=== PATIENT | female | born 1940 | race Caucasian/White ===

== ENCOUNTER 2021-02-03 00:19 | Inpatient (IN) | payer MEDICARE, SELFPAY ==
[2021-02-03] VITALS (50 sets, daily range): BP systolic 95–137; BP diastolic 41–79; PULSE 46–89; RESP 14–28; TEMP 36.4–36.8; O2SAT 90–98; BMI 26.5; BMI 20.5
--- NOTE | 2021-02-03 00:16 | XR_ITS ---
PROCEDURE INFORMATION: Exam: XR Chest Exam date and time: 02/03/2021 12:16 AM Age: 80 years old Clinical indication: Shortness of breath; Patient HX: PT had thora this morning at [facility]; Additional info: SOA TECHNIQUE: Imaging protocol: XR of the chest. Views: 1 view. COMPARISON: No relevant prior studies available. FINDINGS: Lungs: Complete consolidation/collapse of the right lung, with central air bronchograms. Left lung demonstrates coarse interstitial opacities suggesting chronic emphysema. There may be superimposed edema or atypical infection as well. Pleural spaces: Complete opacification of the right hemithorax likely due to a large layering right pleural effusion. No pneumothorax. No left pleural effusion. Heart/Mediastinum: Cardiac silhouette partially obscured, probably mildly enlarged. Aortic atherosclerosis. Implantable loop recorder. Bones/joints: Osteopenia. Remote-appearing fracture deformity of the left proximal humerus. Scattered degenerative changes. IMPRESSION: 1. Complete opacification of the right hemithorax likely representing large layering pleural effusion and complete consolidation/collapse of the right lung. 2. Emphysema. Possible mild edema or atypical infection in the left lung.
--- NOTE | 2021-02-03 00:30 | ECG_ITS ---
APPROVED REPORT Exam: Resting ECG HR:54 bpm ECG Measurements Heart Rate 54 AXES QRSd 104 QRS 68 QT 424 T 65 QTc 402 Conclusion Junctional rhythm Incomplete right bundle branch block ST abnormality, possible digitalis effect Abnormal ECG Electronically signed by : Tom Ricardo MD 02/05/2021 11:40:31
[2021-02-03 00:40] LABS: Coronavirus 19, PCR Not Detected (NotDetected); Influenza A, PCR Not Detected (NotDetected); Influenza B, PCR Not Detected (NotDetected)
[2021-02-03 00:40] LABS: Basophils % 0.5 % (0.1-2.0); Eosinophils % 0.5 % (0.1-12.0); Hematocrit 25.5 % (37.0-47.0); Lymphocytes % 12.1 % (10-50); Mean Corpuscular HGB Conc 31.4 g/dL (31.8-35.4); Mean Corpuscular Hemoglobin 28.1 pg (27.0-31.2); Mean Corpuscular Volume 89.5 fl (81-99); Mean Platelet Volume 8.5 fl (7.4-10.4); Monocytes # 0.6 K/mm3 (0.1-1.0); Monocytes % 7.3 % (1.7-9.3); Neutrophils # 6.4 K/mm3 (1.8-7.8); Neutrophils % 79.5 % (37.0-80.0); Platelet Count 370 K/mm3 (142-424); Red Blood Count 2.85 M/mm3 (4.20-5.40); Red Cell Distribution Width 15.6 % (11.5-17.5)
[2021-02-03 00:44] LABS: ABG Base Excess 2.5 mmol/L (-2.4-2.3); ABG HCO3 27.6 mmhg (22.0-26.0); ABG Oxygen Saturation 93 % (90-100); ABG PCO2 47.5 mmhg (35.0-45.0); ABG PH 7.38 mmol/L (7.35-7.45); ABG PO2 67.2 mmhg (80-100); ABG TCO2 29.1 mmhg (23-27); Allen's Test Y; Oxygen 100 %; Source R/R
[2021-02-03 00:49] LABS: Ammonia < 9 umol/L (9-30)
[2021-02-03 00:50] LABS: Alanine Aminotransferase 16 U/L (12-78); Albumin Level 3.2 g/dl (3.5-5.0); Alkaline Phosphatase 103 U/L (38-126); Anion Gap 11.9 mEq/L (5-15); Aspartate Amino Transferase 27 U/L (14-36); Bilirubin,Total 0.5 mg/dl (0.2-1.3); Blood Urea Nitrogen 30 mg/dl (7-17); Calcium 8.4 mg/dl (8.4-10.2); Carbon Dioxide 29 mmol/L (22.0-30.0); Chloride 101 mmol/L (98-107); Creatinine Clearance Estimated 30 mL/min (50-200); Estimated Glomerular Filt Rate 31 ml/min (>60); GFR (African American) 38 ML/MIN (>60); Globulin 3.3 g/dL (1.3-3.2); Glucose 197 mg/dl (74-100); Lactic Acid 1.2 mmol/L (0.7-2.1); Potassium 4.9 mmoL/L (3.5-5.1); Sodium 137 mmol/L (136-145); Total Protein,Serum 6.5 g/dl (6.3-8.2)
--- NOTE | 2021-02-03 00:52 | HMH.EDSOB ---
ED Disposition Clinical Impression: Pleural effusion Respiratory failure with hypoxia Qualifiers: Chronicity: acute Qualified Code(s): J96.01 - Acute respiratory failure with hypoxia Disposition: Admitted As Inpatient Condition on Discharge: Serious - Critical Care Critical Care Time: No Attestation: On , the high probability of a clinically significant, sudden or life threatening deterioration of the following system(s) required my full and direct attention, intervention and personal management. The time I documented below is in addition to time spent performing reported procedures but includes the following listed in this critical care notation. Medical Decision Making - Medical Records Medical records reviewed: Yes: I reviewed the patient's medical records. - [place] Inquiry Pt receiving controlled substance: No Vital Signs: 02/03/21 00:09 02/03/21 00:15 02/03/21 00:30 Temperature 97.8 F Temperature Source Rectal Pulse Rate 53 L 53 L Pulse Rate [Right Brachial] 54 L Respiratory Rate 28 H 22 20 Blood Pressure 100/54 L 95/52 L Blood Pressure [Right Arm] 126/52 L Blood Pressure Mean Blood Pressure Mean [Right Arm] 76 Blood Pressure Source [Right Arm] Automatic Cuff Blood Pressure Position [Right Arm] Sitting 02 Sat by Pulse Oximetry 96 94 L 95 Oxygen Delivery Method Non-Rebreather Oxygen Flow Rate (LPM) 10 02/03/21 00:45 02/03/21 01:01 02/03/21 01:33 Temperature Temperature Source Pulse Rate 52 L 52 L 54 L Pulse Rate [Right Brachial] Respiratory Rate 15 14 Blood Pressure 99/41 L 114/49 L 125/49 L Blood Pressure [Right Arm] Blood Pressure Mean Blood Pressure Mean [Right Arm] Blood Pressure Source [Right Arm] Blood Pressure Position [Right Arm] 02 Sat by Pulse Oximetry 98 97 90 L Oxygen Delivery Method Oxygen Flow Rate (LPM) 02/03/21 02:01 02/03/21 02:19 02/03/21 02:31 Temperature Temperature Source Pulse Rate 55 L 46 L 53 L Pulse Rate [Right Brachial] Respiratory Rate Blood Pressure 126/49 L 137/57 L 132/57 L Blood Pressure [Right Arm] Blood Pressure Mean 83 82 Blood Pressure Mean [Right Arm] Blood Pressure Source [Right Arm] Blood Pressure Position [Right Arm] 02 Sat by Pulse Oximetry 94 L 94 L 95 Oxygen Delivery Method Non-Rebreather Non-Rebreather Oxygen Flow Rate (LPM) 02/03/21 03:06 Temperature Temperature Source Pulse Rate 53 L Pulse Rate [Right Brachial] Respiratory Rate Blood Pressure 113/51 L Blood Pressure [Right Arm] Blood Pressure Mean Blood Pressure Mean [Right Arm] Blood Pressure Source [Right Arm] Blood Pressure Position [Right Arm] 02 Sat by Pulse Oximetry 95 Oxygen Delivery Method Oxygen Flow Rate (LPM) - Lab Data Lab results reviewed: Yes: I reviewed the patient's lab results. Lab Results 02/03/21 00:30: WBC 8.0, RBC 2.85 L, Hgb 8.0 L, Hct 25.5 L, MCV 89.5, MCH 28.1, MCHC 31.4 L, RDW 15.6, Plt Count 370, MPV 8.5, Neut % (Auto) 79.5, Lymph % (Auto) 12.1, [place] % (Auto) 7.3, Eos % (Auto) 0.5, Baso % (Auto) 0.5, Neut # (Auto) 6.4, Lymph # (Auto) 1.0, [place] # (Auto) 0.6, Eos # (Auto) 0.0, Baso # (Auto) 0.0 02/03/21 00:31: Sodium 137, Potassium 4.9, Chloride 101, Carbon Dioxide 29, Anion Gap 11.9, BUN 30 H, Creatinine 1.60 H, Estimated Creat Clear 30, Estimated GFR 31 L, Est GFR ( Amer) 38 L, Glucose 197 H, Calcium 8.4, Total Bilirubin 0.5, AST 27, ALT 16, Alkaline Phosphatase 103, Total Protein 6.5, Albumin 3.2 L, Globulin 3.3 H, Albumin/Globulin Ratio 1.0 L, Procalcitonin 0.112 02/03/21 00:31: Lactate 1.2 02/03/21 00:31: Ammonia < 9 L 02/03/21 00:31: Troponin I < 0.01, NT-Pro-B Natriuret Pep 7710 H, TSH 3.10 02/03/21 00:35: SARS-CoV-2 (PCR) Not detected, Influenza A Untype (PCR) Not detected, Influenza Type B (PCR) Not detected 02/03/21 00:43: Specimen Source R/r, O2 % 100, ABG pH 7.38, ABG pCO2 47.5 H, ABG pO2 67.2 L, ABG HCO3 27.6 H, ABG Total CO2 29.1 H, ABG O2 Sa
--- NOTE | 2021-02-03 01:01 | PC.NURSE ---
received critical notification of h/h. md sheppard aware.
[2021-02-03 01:03] LABS: NT Pro Brain Natriuretic Pep. 7710 pg/mL (0-450)
[2021-02-03 01:05] LABS: Troponin I < 0.01 ng/ml (0.00-0.034)
[2021-02-03 01:09] LABS: Procalcitonin 0.112 ng/mL (0.0-2.0)
--- NOTE | 2021-02-03 01:13 | CT_ITS ---
PROCEDURE INFORMATION: Exam: CT Chest Without Contrast; Diagnostic Exam date and time: 02/03/2021 1:13 AM Age: 80 years old Clinical indication: Shortness of breath; Patient HX: cedric GOULD earlier today; Additional info: Shortness of air TECHNIQUE: Imaging protocol: Diagnostic computed tomography of the chest without contrast. Radiation optimization: All CT scans at this facility use at least one of these dose optimization techniques: automated exposure control; mA and/or kV adjustment per patient size (includes targeted exams where dose is matched to clinical indication); or iterative reconstruction. COMPARISON: CR XR CHEST PORTABLE 02/03/2021 12:23 AM FINDINGS: Thyroid: Nodularity of the right thyroid lobe suggested. Left thyroid lobe is not visualized, may be surgically removed. Lungs: Complete consolidation/collapse of the right lung. The right lung is heterogeneous in appearance/attenuation, with notable decreased attenuation involving right upper lobe, suspicious for pneumonia. Scattered secretions/mucus plugging within the right bronchitis/bronchials, most significantly involving the right lower lobe. Mild dependent atelectasis at the left lung base. Pleural spaces: Large right pleural effusion occupying the entire right hemithorax. This measures simple fluid attenuation. No pneumothorax. No left pleural effusion. Heart: Cardiomegaly. No significant pericardial effusion. Coronary calcifications and stents. Mediastinal space: Small hiatal hernia. Aorta: Scattered atherosclerotic calcifications. No thoracic aortic aneurysm. Lymph nodes: Scattered prevascular lymph nodes measuring up to 0.6 cm in short axis, nonspecific, likely reactive. No frankly enlarged lymph nodes are seen within the thorax. Liver: Incompletely imaged. Heterogeneous attenuation is seen near the liver dome, with possible capsular retraction, not fully assessed. Intraperitoneal space: Partially visualized small volume ascites Bones/joints: Old posterior left 11th rib fracture. Osteopenia. Scattered degenerative changes including multilevel spondylosis. Soft tissues: Implantable loop recorder in the anterior chest wall. Other findings: There is low-attenuation in blood pool compatible with anemia. IMPRESSION: 1. Large right pleural effusion occupying the entire right hemithorax. Complete collapse of the right lung, which is heterogeneous in attenuation, possibly due to superimposed pneumonia. 2. Mild dependent atelectasis at the left lung base. 3. Cardiomegaly. Anemia. Partially visualized ascites. 4. The liver appears heterogeneous in attenuation, which is not fully evaluated. Infiltrative liver mass cannot be excluded. Recommend dedicated liver imaging for further evaluation.
--- NOTE | 2021-02-03 01:14 | PC.NURSE ---
notified rad of ct scan
--- NOTE | 2021-02-03 01:35 | PC.NURSE ---
RT at bedside
--- NOTE | 2021-02-03 02:16 | PC.NURSE ---
to whitney, nurse with patient.
[2021-02-03 04:01] LABS: Troponin I < 0.01 ng/ml (0.00-0.034)
[2021-02-03 06:44] LABS: Chloride 104 mmol/L (98-107); Potassium 4.6 mmoL/L (3.5-5.1); Sodium 137 mmol/L (136-145)
[2021-02-03 06:47] LABS: Anion Gap 8.6 mEq/L (5-15); Blood Urea Nitrogen 32 mg/dl (7-17); Calcium 8.2 mg/dl (8.4-10.2); Carbon Dioxide 29 mmol/L (22.0-30.0); Creatinine Clearance Estimated 27 mL/min (50-200); Estimated Glomerular Filt Rate 33 ml/min (>60); GFR (African American) 41 ML/MIN (>60); Glucose 122 mg/dl (74-100)
[2021-02-03 06:49] LABS: Eosinophils # 0.1 K/mm3 (0.0-0.4); Lymphocytes # 1.3 K/mm3 (0.7-4.5); Mean Corpuscular Volume 90.9 fl (81-99); Monocytes # 0.6 K/mm3 (0.1-1.0)
[2021-02-03 06:53] LABS: Basophils % 0.5 % (0.1-2.0); Eosinophils % 1.2 % (0.1-12.0); Lymphocytes % 18.8 % (10-50); Mean Corpuscular Hemoglobin 28.2 pg (27.0-31.2); Mean Platelet Volume 8.2 fl (7.4-10.4); Monocytes % 8.9 % (1.7-9.3); Neutrophils # 4.8 K/mm3 (1.8-7.8); Neutrophils % 70.7 % (37.0-80.0); Platelet Count 305 K/mm3 (142-424); Red Blood Count 2.53 M/mm3 (4.20-5.40); Red Cell Distribution Width 15.7 % (11.5-17.5); White Blood Count 6.8 K/mm3 (4.8-10.8)
[2021-02-03 06:54] LABS: Hemoglobin 7.1 g/dL (12.2-16.2)
--- NOTE | 2021-02-03 06:56 | PC.NURSE ---
Recieved call from Martha in lab, critical lab value Hgb: 7.1, Hct: 23, report to
[2021-02-03 07:04] LABS: Troponin I < 0.01 ng/ml (0.00-0.034)
--- NOTE | 2021-02-03 07:16 | US_ITS ---
PROCEDURE: US LIVER CLINICAL INDICATION: Liver mass on CT? COMPARISON: CT CT CHEST WO CON from 02/03/2021 FINDINGS: PANCREAS: Pancreatic tail is not well delineated. The pancreatic head has an unremarkable appearance. Previous CT scan shows at least 2 hypodensities and possibly 3 of the pancreatic tail measuring approximately 10 mm each. This may be better evaluated with MRI without and with contrast if the patient can breath hold. If the patient cannot breath [address] LIVER: No liver mass is evident. The CT scan showed decreased density within what appear to represent a retracted right hepatic lobe anteriorly near the portal region. There is some increased echogenicity at this area suggesting hepatic steatosis. No focal liver lesion however is identified.. The liver has a somewhat lobular contour. There is a small right pleural effusion. The liver margin is somewhat irregular suggesting underlying cirrhosis. There is appropriate direction of blood flow within a non dilated portal vein. RIGHT KIDNEY: Unremarkable. Normal size and echogenicity. No hydronephrosis GALLBLADDER: Status post cholecystectomy. Common bile duct is normal at 2 mm. IMPRESSION: 1. Pancreatic tail is not well visualized. Hypodensities noted in this area on the CT scan. MRI of the pancreas suggested for further evaluation if the patient can breath hold. If the patient cannot breath [address] with pancreatic protocol. 2. Cirrhosis with central hepatic steatosis. No definite liver lesion apparent. Follow-up with MRI or ultrasound could confirm. Dictated by: Jourdan Harmon MD 02/03/2021 15:59 Jourdan Harmon MD in [place] 02/03/2021 15:59
--- NOTE | 2021-02-03 07:16 | HMH.HP ---
*Admission Date: 02/02/21 *Chief complaint: Dyspnea and fatigue *History of present illness: 80-year-old white female who is a resident of the [facility], who was seen by pulmonary at the [facility] yesterday because of pleural effusions and apparently had 2 L of fluid drained from her right chest without initial complications. Transferred back to the [facility] facility without complication but then became very short of air and pale, transferred here to the emergency department. In the emergency department continue to have evidence of a large pleural effusion, but evidence of CHF with vascular congestion, elevated BNP and very anemic with hemoglobin below 8 with symptomatic dyspnea. Admitted to hospital for further evaluation and diagnostic testing. [facility] History I have reviewed the patient's past medical history: Yes Medical History: Reports:: Atrial Fibrillation, Congestive Heart Failure, Coronary Artery Disease, Diabetes Mellitus Type 2, Hyperlipidemia, Hypertension, Internal Pacemaker Denies:: Diabetes Mellitus Type 1, MRSA *Have you ever received a pneumonia vaccine?: Yes *Have you received a flu vaccine this season?: Yes Other Medical History: Reports: Anemia, Hypothyroidism, Liver Disease, Thyroid Disease Other Surgeries: Yes: Pacemaker Amputation: No Fractures: No - *Social History Smoking Status: Former smoker Alcohol Intake: never *Occupational Status:: retired Housing: assisted living facility Household Members: spouse *Travel in the last 8 weeks: None Family Hx:: Unable to obtain Review of Systems - Review of Systems Review of systems:: pertinent systems reviewed and negative unless documented below Patient is pleasant and talkative, denies complaints except for dyspnea and fatigue. - *Neurologic Denies dizziness, Denies localized weakness, Denies headache(s) Meds Home Medications Medication Instructions Recorded Confirmed Type Aspirin [Aspirin 81mg chewable 81 mg PO DAILY 02/03/21 02/03/21 History tab] Atorvastatin Calcium [Lipitor 40mg 40 mg PO HS 02/03/21 02/03/21 History Tablet*] Citalopram Hydrobromide [Celexa] 20 mg PO DAILY 02/03/21 02/03/21 History Donepezil HCl [Aricept] 5 mg PO DAILY 02/03/21 02/03/21 History Pantoprazole Sodium [Protonix 40mg 40 mg PO DAILY 02/03/21 02/03/21 History tablet] Quetiapine Fumarate [Seroquel 25mg 25 mg PO HS 02/03/21 02/03/21 History tablet] Sennosides/Docusate Sodium 2 tab PO HS 02/03/21 02/03/21 History [Senna-Docusate Sodium Tablet] lamoTRIgine [Lamictal] 100 mg PO BID 02/03/21 02/03/21 History levETIRAcetam [Keppra 500mg tablet] 500 mg PO BID 02/03/21 02/03/21 History Allergies Allergy/AdvReac Type Severity Reaction Status Date / Time No Known Allergies Allergy Verified 02/03/21 00:16 Exam Vital signs and Labs for Last 24 Hours: Temp Pulse Resp BP Pulse Ox 97.8 F 50 L 20 125/56 L 93 L 02/03/21 04:13 02/03/21 04:26 02/03/21 04:13 02/03/21 04:13 02/03/21 06:31 Laboratory Results - last 24 hr 02/03/21 00:30: WBC 8.0, RBC 2.85 L, Hgb 8.0 L, Hct 25.5 L, MCV 89.5, MCH 28.1, MCHC 31.4 L, RDW 15.6, Plt Count 370, MPV 8.5, Neut % (Auto) 79.5, Lymph % (Auto) 12.1, [place] % (Auto) 7.3, Eos % (Auto) 0.5, Baso % (Auto) 0.5, Neut # (Auto) 6.4, Lymph # (Auto) 1.0, [place] # (Auto) 0.6, Eos # (Auto) 0.0, Baso # (Auto) 0.0 02/03/21 00:31: Sodium 137, Potassium 4.9, Chloride 101, Carbon Dioxide 29, Anion Gap 11.9, BUN 30 H, Creatinine 1.60 H, Estimated Creat Clear 30, Estimated GFR 31 L, Est GFR ( Amer) 38 L, Glucose 197 H, Calcium 8.4, Total Bilirubin 0.5, AST 27, ALT 16, Alkaline Phosphatase 103, Total Protein 6.5, Albumin 3.2 L, Globulin 3.3 H, Albumin/Globulin Ratio 1.0 L, Procalcitonin 0.112 02/03/21 00:31: Lactate 1.2 02/03/21 00:31: Ammonia < 9 L 02/03/21 00:31: Troponin I < 0.01, NT-Pro-B Natriuret Pep 7710 H, TSH 3.10 02/03/21 00:35: SARS-CoV-2 (PCR) Not detected, Influenz
--- NOTE | 2021-02-03 07:29 | P.CONPHA_ITS ---
[facility] Pharmacy VTE Monitoring - Patient Demographics Admission date: 02/03/21 Report Date: 02/03/21 Time: 07:29 Allergies/Adverse Reactions: Patient Allergies No Known Allergies Allergy (Verified 02/03/21 00:16) Height: 1.65 m Weight: 55.82 kg Patient Problems: Current Active Problems Pleural effusion (Acute) Respiratory failure with hypoxia (Acute) Anemia (Acute) Mitral regurgitation (Acute) Liver mass (Acute) - VTE Risk Labs: VTE Related Lab Results Hgb 7.1 g/dL (12.2-16.2) L* 02/03/21 06:22 Hct 23.0 % (37.0-47.0) L* 02/03/21 06:22 Plt Count 305 K/mm3 (142-424) 02/03/21 06:22 BUN 32 mg/dl (7-17) H 02/03/21 06:22 Creatinine 1.50 mg/dl (0.52-1.04) H 02/03/21 06:22 Estimated Creat Clear 27 mL/min (50-200) 02/03/21 06:22 VTE Score: 6 VTE Risk Level: Low Risk - Prophylaxis VTE Prophylaxis Ordered?: Yes Types of VTE Prophylaxis: TEDS Knee High Location of Applied Device: Bilateral Lower Extremeties
--- NOTE | 2021-02-03 08:00 | CA_ITS ---
APPROVED REPORT EXAM: Comprehensive 2D, Doppler, and color-flow Echocardiogram [employer] Worker: Samantha Cárdenas CRT Ht: 5 ft 2 in Wt: 145lbs BSA: 1.67 BP: 113/51 mmHg Indications: COPD, DNR, SOB, Respiratory failure, non-alcoholic cirrhosis 2D Dimensions LVOT 1.74 cm (M/F) 1.5-2.5 LA Volume 54.60 mL LA Volume Index 32.70 mL/m2 (M/F) 16-34 M-Mode Dimensions RVDd 1.99 cm (0.9-2.6) LA Diam 4.77 cm (1.9-4.0) LVDd 5.34 cm (3.5-5.7) Ao Diam 3.01 cm (2.0-3.7) LVDs 2.20 cm (3.5-5.7) IVSd 1.27 cm (0.6-1.1) PWd 0.78 cm (0.6-1.1) EF (Teich) 88.20% FS 58.80% EDV (Teich) 137.70 mL TAPSE 2.78 (<1.7) ESV (Teich) 16.20 mL LV Diastology E Decel Time 167.00 (160-240 msec) E/A Ratio 2.48 MED E' 6.20 (< 7 cm/sec) MED A' 3.10 cm/s E'/MED E' Ratio 23.06 (>14) LAT E' 9.50 (<10 cm/sec) LAT A' 4.20 cm/s E/LAT E' Ratio 15.05 (>14) Aortic Valve LVOT Max 179.00 (70-110 cm/s) LVOT VTI 46.95 cm AoV Peak Brian. 216.00 (50-130 cm/s) AO Peak GR. 18.60 mmHg AO Mean GR. 10.30 (<5 mmHg) AO VTI 53.82 (18-25 cm) YRN (VTI) 2.07 (2.5-4.5 cm2) Mitral Valve MV E Max Brian. 143.00 (40-130 cm/s) MV A Velocity 58.00 (40-130 cm/s) E/A Ratio 2.48 MV Decel. Time 167.00 (160-240 ms) MV PHT 49.00 ms Pulmonary Valve PV Peak Velocity 216.00 (50-150 cm/s) Tricuspid Valve TR P. Velocity 268.00 cm/s RAP Estimate 10.00 mmHg RVSP 38.80 mmHg Left Ventricle Left atrium is mildly enlarged, left ventricle is normal size, mild concentric left ventricular hypertrophy, visually estimated ejection fraction 55% with no regional wall motion abnormality, diastolic parameters are inconclusive. Right Ventricle Right atrium and right ventricle mildly enlarged with normal contractility. Aortic Valve Aortic valve is thickened and calcified without Doppler evidence of aortic stenosis or aortic insufficiency. Mitral Valve Mitral valve is minimally thickened, degenerative changes are present both anterior posterior mitral leaflet, there is no mitral stenosis, there is moderate mitral regurgitation. Tricuspid Valve Tricuspid valve grossly normal, there is mild tricuspid irritation, calculated right ventricular systolic pressure 36 mmHg. Pulmonic Valve Pulmonic valve is poorly visualized. Great Vessels Aortic root is normal size. Inferior vena cava is normal size with normal inspiratory collapse. Pericardium No significant pericardial effusion noted. Large left-sided pleural effusion noted. Conclusion 1. Biatrial enlargement, normal left ventricular size, mild concentric left ventricular hypertrophy, visually estimated ejection fraction 55% with no regional wall motion abnormality, diastolic parameters are inconclusive. 2. Mildly enlarged right ventricle with normal contractility. 3. Thickened and calcified aortic valve without aortic stenosis or aortic insufficiency. 4. Moderate mitral and mild tricuspid regurgitation, calculated right ventricular systolic pressure 36 mmHg. 5. No significant pericardial effusion noted, large left-sided pleural effusion seen. 6. Inferior vena cava is normal size with normal inspiratory collapse. Electronically signed by : Titi Brink MD 02/04/2021 15:27:31
--- NOTE | 2021-02-03 08:27 | HMH.CNCARD ---
History of Present Illness Consult date: 02/03/21 Requesting physician: Tom Ricardo Consult reason: shortness of breath Chief complaint: SOA Additional Medical History:: 1. Coronary artery disease A. History of coronary artery stenting approximately 2009, [facility] B. Patient reports history of congestive heart failure in the past 2. History of atrial fibrillation A. Implanted loop recorder B. Amiodarone therapy 3. Chronic anemia A. History of hemorrhoids with upper and lower scopes reportedly without significant etiology for bleeding 4. Nonalcoholic cirrhosis of the liver 5. Remote history of tobacco use discontinued 1982 with approximately [id number] history 6. Right pleural effusion, status post thoracentesis of 2 L of fluid, 02/02/2021, [facility] 7. Hypertension 8. Hyperlipidemia 9. Right-sided thyroid nodule with presumed partial thyroidectomy based on CT of the chest 02/02/2021 History of present illness: 80-year-old white female who is a resident of the [facility], who was seen by pulmonary at the [facility] yesterday because of pleural effusions and apparently had 2 L of fluid drained from her right chest without initial complications. Transferred back to the [facility] without complication but then became very short of air and pale, transferred here to the emergency department. In the emergency department continue to have evidence of a large pleural effusion, but evidence of CHF with vascular congestion, elevated BNP and very anemic with hemoglobin below 8 with symptomatic dyspnea. Admitted to hospital for further evaluation and diagnostic testing. The above per Dr. Ricardo. Cardiology consulted for evaluation and recommendations. Patient denies any chest pain, pressure or tightness. Most of her symptoms are related to shortness of breath as noted above. She relates coronary stenting approximately 10 years ago at [facility] in [facility]. She also has a loop recorder for history of atrial fib for which she is on amiodarone therapy and no anticoagulation. She has followed by Dr. Blackwell. EKG shows junctional rhythm at 54 bpm with incomplete right bundle and nonspecific ST-T abnormalities. QTc is 402 ms. [facility] History Medical History: Reports:: Atrial Fibrillation, Congestive Heart Failure, Coronary Artery Disease, Diabetes Mellitus Type 2, Hyperlipidemia, Hypertension, Internal Pacemaker Denies:: Diabetes Mellitus Type 1, MRSA *Have you ever received a pneumonia vaccine?: Yes *Have you received a flu vaccine this season?: Yes Other Medical History: Reports: Anemia, Hypothyroidism, Liver Disease, Thyroid Disease Other Surgeries: Yes: Pacemaker Amputation: No Fractures: No - *Social History Smoking Status: Former smoker Alcohol Intake: never *Occupational Status:: retired Housing: assisted living facility Household Members: spouse *Travel in the last 8 weeks: None Family Hx:: Unable to obtain Meds Home Medications Medication Instructions Recorded Confirmed Type Aspirin [Aspirin 81mg chewable 81 mg PO DAILY 02/03/21 02/03/21 History tab] Atorvastatin Calcium [Lipitor 40mg 40 mg PO HS 02/03/21 02/03/21 History Tablet*] Citalopram Hydrobromide [Celexa] 20 mg PO DAILY 02/03/21 02/03/21 History Donepezil HCl [Aricept] 5 mg PO DAILY 02/03/21 02/03/21 History Pantoprazole Sodium [Protonix 40mg 40 mg PO DAILY 02/03/21 02/03/21 History tablet] Quetiapine Fumarate [Seroquel 25mg 25 mg PO HS 02/03/21 02/03/21 History tablet] Sennosides/Docusate Sodium 2 tab PO HS 02/03/21 02/03/21 History [Senna-Docusate Sodium Tablet] lamoTRIgine [Lamictal] 100 mg PO BID 02/03/21 02/03/21 History levETIRAcetam [Keppra 500mg tablet] 500 mg PO BID 02/03/21 02/03/21 History Allergies Allergy/AdvReac Type Severity Reaction Status Date / Time No Known Allergies Allergy Verified 02/03/21 00:
--- NOTE | 2021-02-03 10:30 | HMH.PULMCON ---
*Admission Date: 02/03/21 *Reason for consult:: Acute hypoxic respiratory failure, pleural effusion *History of present illness: Ms. Alvarado is a 80-year-old female prior smoker last smoked around 1982, no significant prior respiratory complaints, not on any inhalers at baseline presented to the hospital with worsening hypoxic respiratory: Found to have a large right-sided pleural effusion and pulmonary was called for further management. Patient admits productive cough. Denies any fevers or chills. Denies any sick contacts. [facility] History Medical History: Reports:: Atrial Fibrillation, Congestive Heart Failure, Coronary Artery Disease, Diabetes Mellitus Type 2, Hyperlipidemia, Hypertension, Internal Pacemaker Denies:: Diabetes Mellitus Type 1, MRSA *Have you ever received a pneumonia vaccine?: Yes *Have you received a flu vaccine this season?: Yes Other Medical History: Reports: Anemia, Hypothyroidism, Liver Disease, Thyroid Disease Other Surgeries: Yes: Pacemaker Amputation: No Fractures: No - *Social History Smoking Status: Former smoker Alcohol Intake: never *Occupational Status:: retired Housing: assisted living facility Household Members: spouse *Travel in the last 8 weeks: None Family Hx:: Unable to obtain ROS - Cons Reports anorexia, Reports body ache(s) - ENT Reports abnormal hearing - Card Reports shortness of breath, Reports shortness of breath with activity - Resp Respiratory: Reports shortness of breath, Reports chest congestion, Reports cough, Reports excessive phlegm production - GI Gastrointestingal: Denies: abdominal pain - Psych Reports abnormal sleep pattern Meds Home Medications Medication Instructions Recorded Confirmed Type Aspirin [Aspirin 81mg chewable 81 mg PO DAILY 02/03/21 02/03/21 History tab] Atorvastatin Calcium [Lipitor 40mg 40 mg PO HS 02/03/21 02/03/21 History Tablet*] Citalopram Hydrobromide [Celexa] 20 mg PO DAILY 02/03/21 02/03/21 History Donepezil HCl [Aricept] 5 mg PO DAILY 02/03/21 02/03/21 History Pantoprazole Sodium [Protonix 40mg 40 mg PO DAILY 02/03/21 02/03/21 History tablet] Quetiapine Fumarate [Seroquel 25mg 25 mg PO HS 02/03/21 02/03/21 History tablet] Sennosides/Docusate Sodium 2 tab PO HS 02/03/21 02/03/21 History [Senna-Docusate Sodium Tablet] lamoTRIgine [Lamictal] 100 mg PO BID 02/03/21 02/03/21 History levETIRAcetam [Keppra 500mg tablet] 500 mg PO BID 02/03/21 02/03/21 History Allergies Allergy/AdvReac Type Severity Reaction Status Date / Time No Known Allergies Allergy Verified 02/03/21 00:16 Exam - Constitutional Constitutional:: Present: comfortable - HENMT Exam HENMT: Present: normocephalic, atraumatic - Eye Exam Eyes:: Present: normal appearance both eyes and related structures - Neck Exam Neck:: Present: normal visual inspection - Respiratory Exam Respiratory:: Present: able to speak in complete sentences, respiratory distress, decreased breath sounds, crackles. Absent: wheezing - Cardiovascular Exam Cardiac:: Present: S1, S2 - GI Exam GI:: Present: soft, no hepatosplenomegaly - Skin Exam Skin: Present: warm, no rash, dry - Neurological Exam Neurological: Present: alert, awake, normal cognition - Extremities Exam Extremities: Present: no cyanosis, no clubbing - Psychiatric Exam Psychiatric: Present: normal affect Internal Medicine - CN: Reslt - Labs CBC & Chem 7: 02/03/21 06:22 02/03/21 06:22 Labs: Short CBC 02/03/21 02/03/21 Range/Units 00:30 06:22 WBC 8.0 6.8 (4.8-10.8) K/mm3 Hgb 8.0 L 7.1 L* (12.2-16.2) g/dL Hct 25.5 L 23.0 L* (37.0-47.0) % Plt Count 370 305 (142-424) K/mm3 BMP 02/03/21 02/03/21 00:31 06:22 Sodium 137 137 Potassium 4.9 4.6 Chloride 101 104 Carbon Dioxide 29 29 BUN 30 H 32 H Creatinine 1.60 H 1.50 H Glucose 197 H 122 H D Calcium 8.4 8.2 L Cardiac Enzymes 02/03/21 02/03/21 02/03/21 Range/U
--- NOTE | 2021-02-03 11:26 | US_ITS ---
PROCEDURE: US THORACENTESIS CLINICAL INDICATION: Right pleural effusion COMPARISON: No exams were available for comparison FINDINGS: Ultrasound was used for localization right thoracentesis. Two images submitted during the procedure showing a large right pleural effusion with collapse right lower lobe. IMPRESSION: Ultrasound guidance for right thoracentesis Dictated by: Jourdan Harmon MD 02/03/2021 16:13 Jourdan Harmon MD in [facility] 02/03/2021 16:13
--- NOTE | 2021-02-03 12:56 | P.PCN_ITS ---
[facility] Procedure Note Procedure Note:: Thoracentesis procedure: Indication for the procedure: Right-sided pleural effusion Referring physician Dr. Rossi: Procedure was explained and consent was obtained from the patient and POA A time-out was completed verifying correct patient, procedure, site, positioning, and special equipment if applicable. The patient?s right side was prepped and draped in a sterile manner after the appropriate infiltration level was confirmed by ultrasound. 1% lidocaine was used anesthetize the surrounding skin. A finder needle was then used to locate fluid and clear yellow fluid was obtained. A 10-blade scalpel used to make the incision. The thoracentesis catheter was then threaded without difficulty. The patient had 2300 ml of clear yellow fluid removed. A post-procedure chest x-ray was ordered and the fluid will be sent for routine studies including cytopathology. Estimated blood loss: 0ml Patient tolerated the procedure well. Follow with the results.
--- NOTE | 2021-02-03 12:58 | XR_ITS ---
PROCEDURE: XR CHEST PORTABLE CLINICAL HISTORY: Post procedure Follow-up thoracentesis COMPARISON: CR XR CHEST PORTABLE from 02/03/[address] CHEST WO CON from 02/03/2021 FINDINGS: Status post right sided thoracentesis. There has been interval improvement in the opacified right hemithorax. There however does remain diffuse alveolar opacification on the right consistent with right-sided pneumonia. There is a small residual right-sided pleural effusion. There is no evidence of pneumothorax. Loop recorder device is present. No acute bony abnormalities. IMPRESSION: Status post right-sided thoracentesis with marked decrease in right-sided pleural effusion. Right-sided pneumonia involves the right upper and right lower lobe with small residual right effusion and no evidence of pneumothorax. Dictated by: Jourdan Harmon MD 02/03/2021 14:32 Jourdan Harmon MD in [facility] 02/03/2021 14:32
--- NOTE | 2021-02-03 13:00 | HMH.PHAINT ---
MEDICATION RECONCILIATION COMPLETED ON PATIENT USING MAR FROM [facility]. -NICHOLE DUNCAN, JACID
[2021-02-03 13:11] LABS: Chloride 104 mmol/L (98-107)
[2021-02-03 13:12] LABS: Sodium 136 mmol/L (136-145)
[2021-02-03 13:14] LABS: Alanine Aminotransferase 10 U/L (12-78); Alkaline Phosphatase 94 U/L (38-126); Aspartate Amino Transferase 26 U/L (14-36); Bilirubin,Total 0.3 mg/dl (0.2-1.3); Blood Urea Nitrogen 34 mg/dl (7-17); Creatinine Clearance Estimated 29 mL/min (50-200); Estimated Glomerular Filt Rate 36 ml/min (>60); GFR (African American) 44 ML/MIN (>60)
[2021-02-03 13:15] LABS: Albumin Level 2.7 g/dl (3.5-5.0); Albumin/Globulin Ratio 0.9 (1.1-1.8); Calcium 8.2 mg/dl (8.4-10.2); Carbon Dioxide 26 mmol/L (22.0-30.0); Globulin 3.1 g/dL (1.3-3.2); Glucose 111 mg/dl (74-100); Total Protein,Serum 5.8 g/dl (6.3-8.2)
[2021-02-03 13:29] LABS: Appearance,Body Fld. Hazy; RBC,Body Fluid < 10 cells/uL (< 10 X 10^3); Source, Body Fld. Thoracentesis Fluid; TNC,Body Fluid 72 cells/uL (< 1000); Volume,Body Fld. 88 mL
[2021-02-03 13:37] LABS: Lactate Dehydrogenase 196 U/L (313-618)
[2021-02-03 13:52] LABS: Mononuclear WBCs,Body Fluid 80 %; Polynuclear WBC,Body Fluid 20 %
--- NOTE | 2021-02-03 14:15 | SW/DCPLANNER ---
Addendum entered by Enma Pitts 02/05/21 09:58: PATIENT IS DISCHARGING BACK TO [facility] TODAY... I HAVE SENT A HOSPICE REFERRAL FOR THEM TO CALL THE FACILITY AND SET UP A TIME TO SPEAK WITH PATIENT AND ABOUT HOSPICE SERVICES.... AGREED WITH THE PLAN... Original Note: PATIENT PRESENTED INTO THE ACUTE HOSPITAL FROM [facility] WITH DYSPNEA AND FATIGUE, SHE HAD BEEN TO THE HOSPITAL AT [facility] AND HAD FLUID DRAWN ON HER LUNG... THEY BROUGHT HER BACK TO THE [facility] AND THEN SHE WAS BROUGHT HERE TO [facility]..I DID CALL THE FACILITY AND SHE IS CURRENTLY PRIVATE PAY THERE WITH MEDICAID PENDING ONCE SHE HAS DEPLETED HER FUNDS.. THEY ARE DOING A BEDHOLD FOR HER RETURN.. DISPOSITION IS UNCERTAIN, CM WILL CONTINUE TO FOLLOW AND ASSIST INDICATED...
--- NOTE | 2021-02-03 16:38 | PC.NURSE ---
Sputum induced. Pt unable to make productive cough. Specimen cup left at bedside.
--- NOTE | 2021-02-03 17:54 | PC.NURSE ---
pt is AxOx4, has rested most of the shift, has remained on vapotherm t/o shift, on assessment coarse crackles noted, Dr. August performed thoracentesis with 2300 mL taken off, wants her weaned back to NC but so far has required vapotherm, telemetry has shown SB with HR 48-53 t/o shift, received 2 units of blood this shift with no s/s of transfusion reaction
[2021-02-03 18:25] LABS: Hematocrit 30.5 % (37.0-47.0); Hemoglobin 9.6 g/dL (12.2-16.2)
--- NOTE | 2021-02-03 23:20 | PC.NURSE ---
She is alert to person, name and place. She stated she was in [place]. She denies pain. Safety is set and call light within reach. She continues on vapotherm. The vapotherm has been weaned to 25LPM 50% FiO2.
--- NOTE | 2021-02-03 23:58 | PC.NURSE ---
Her O2 sats began to decrease even with breathing treatment. Vapotherm settings increased to 30LPM 65%FiO2.
[2021-02-04] VITALS (9 sets, daily range): BP systolic 103–130; BP diastolic 40–59; PULSE 50–69; RESP 14–19; TEMP 36.4–36.7; O2SAT 92–97; BMI 20.3
--- NOTE | 2021-02-04 00:16 | PC.NURSE ---
Vapotherm setting increased to 30LPM 70%FiO2 by respiratory.
--- NOTE | 2021-02-04 08:04 | HMH.PNCARD ---
Subjective Date: 02/04/21 Time: 08:04 Principal diagnosis: pleural effusion Interval history: 80-year-old white female lying in bed nearly flat in no acute distress. Resting comfortably. She continues on Vapotherm at 30 L/min with oxygen saturation greater than 92%. Right-sided thoracentesis yesterday removed just over 2 L of fluid was clear. Pathology is pending Questionable history of cancer but records incomplete. Telemetry continues to show sinus bradycardia. No tacky arrhythmias noted on loop interrogation yesterday. We will resume amiodarone therapy 200 mg daily. Exam Vital signs and Labs for Last 24 Hours: Temp Pulse Resp BP Pulse Ox 97.9 F 57 L 18 108/50 L 93 L 02/04/21 04:00 02/04/21 06:58 02/04/21 04:00 02/04/21 04:00 02/04/21 06:58 Laboratory Results - last 24 hr 02/03/21 06:22: Blood Type Confirm B Negative 02/03/21 06:22: Sodium 136, Potassium 5.0, Chloride 104, Carbon Dioxide 26, Anion Gap 11.0, BUN 34 H, Creatinine 1.40 H, Estimated Creat Clear 29, Estimated GFR 36 L, Est GFR ( Amer) 44 L, Glucose 111 H, Calcium 8.2 L, Total Bilirubin 0.3, AST 26, ALT 10 L D, Alkaline Phosphatase 94, Lactate Dehydrogenase 196 L, Total Protein 5.8 L, Albumin 2.7 L D, Globulin 3.1, Albumin/Globulin Ratio 0.9 L 02/03/21 07:41: Blood Type B Negative, Antibody Screen Negative, Crossmatch (AHG) See Detail 02/03/21 13:00: Fluid Source Thoracentesis fluid, Fluid Volume 88, Fluid Appearance Hazy, Fluid RBC (Auto) < 10, Fld Tot Nucleated Cell 72, Fld Polynuclear WBCs % 20, Fld Mononuclear WBCs % 80 02/03/21 17:23: Hgb 9.6 L D, Hct 30.5 L I & O for Last 24 hours: Intake & Output 02/01/21 02/02/21 02/03/21 02/04/21 11:59 11:59 11:59 11:59 Intake Total 0 / 0 2132 / 2132 Output Total 1325 / 1325 Balance 0 / 0 807 / 807 Weight 123 lb 1 oz 120 lb 8 oz Microbiology Reports for the Last 24 Hours: Microbiology 02/03/21 13:00 Thoracic Fluid Gram Stain - Final - Constitutional no acute distress - *Routine Respiratory Exam Present: CTA bilaterally Comments: Right-sided breath sounds have improved since yesterday and the thoracentesis. - *Routine Cardiovascular Exam Present: RRR, bradycardia - *Routine Extremities Exam Absent: cyanosis, clubbing, edema Progress Note: A&P (1) Anemia Status: Acute (2) Mitral regurgitation Status: Acute (3) Liver mass Status: Acute (4) Pleural effusion Status: Acute (5) Respiratory failure with hypoxia Status: Acute (6) History of atrial fibrillation Status: Acute (7) On amiodarone therapy Status: Acute (8) Non-alcoholic cirrhosis Status: Acute (9) Coronary artery disease Status: Acute (10) History of coronary artery stent placement Status: Acute (11) CKD (chronic kidney disease) stage 3, GFR 30-59 ml/min Status: Acute Assessment and Plan for All Diagnoses:: 1. Right-sided pleural effusion of unknown etiology status post right-sided thoracentesis x2 this week. Management per pulmonary and Dr. Ricardo. 2. History of atrial fibrillation, currently sinus bradycardia on amiodarone therapy. No tacky or significant bradycardia arrhythmias noted on interrogation of loop recorder and no evidence of pauses. No anticoagulation due to patient reporting recent GI bleed. 3. Iron deficiency anemia, status post transfusion with hemoglobin 9.6 yesterday. 4. CAD with history of stent placement many years ago. Clinically stable. Continue aspirin and statin therapy. Preliminary echocardiogram showed preserved ejection fraction. Official report pending at this time. 5. Moderate mitral regurgitation, official echo report pending. Patient likely will benefit from low-dose or as needed diuretic use. 6. Nonalcoholic cirrhosis of the liver 7. Unconfirmed history of cancer, records incomplete at this time. 8. CKD, stage III, management per Dr. Ricardo. Nothing further to add at this time. Please call if needed.
--- NOTE | 2021-02-04 08:35 | HMH.ACPN2 ---
Internal Medicine - PN: Subj *Date: 02/04/21 *Time: 08:35 Interval history: Patient did well with thoracentesis yesterday. More comfortable. Still requiring Vapotherm for oxygenation. She is sleeping this morning but when awakened is alert, oriented to place and time. Exam Vital signs and Labs for Last 24 Hours: Temp Pulse Resp BP Pulse Ox 97.9 F 57 L 18 108/50 L 93 L 02/04/21 04:00 02/04/21 06:58 02/04/21 04:00 02/04/21 04:00 02/04/21 06:58 Laboratory Results - last 24 hr 02/03/21 06:22: Sodium 136, Potassium 5.0, Chloride 104, Carbon Dioxide 26, Anion Gap 11.0, BUN 34 H, Creatinine 1.40 H, Estimated Creat Clear 29, Estimated GFR 36 L, Est GFR ( Amer) 44 L, Glucose 111 H, Calcium 8.2 L, Total Bilirubin 0.3, AST 26, ALT 10 L D, Alkaline Phosphatase 94, Lactate Dehydrogenase 196 L, Total Protein 5.8 L, Albumin 2.7 L D, Globulin 3.1, Albumin/Globulin Ratio 0.9 L 02/03/21 07:41: Blood Type B Negative, Antibody Screen Negative, Crossmatch (AHG) See Detail 02/03/21 13:00: Fluid Source Thoracentesis fluid, Fluid Volume 88, Fluid Appearance Hazy, Fluid RBC (Auto) < 10, Fld Tot Nucleated Cell 72, Fld Polynuclear WBCs % 20, Fld Mononuclear WBCs % 80 02/03/21 17:23: Hgb 9.6 L D, Hct 30.5 L I & O for Last 24 hours: Intake & Output 02/01/21 02/02/21 02/03/21 02/04/21 11:59 11:59 11:59 11:59 Intake Total 0 / 0 2132 / 2132 Output Total 1325 / 1325 Balance 0 / 0 807 / 807 Weight 123 lb 1 oz 120 lb 8 oz Microbiology Reports for the Last 24 Hours: Microbiology 02/03/21 13:00 Thoracic Fluid Gram Stain - Final Narrative: Frail, lying on her side. Left lung is clear with good air movement, right lung with diminished air movement given positioning and residual effusion. No crackles. She is not tachypneic. Heart rate bradycardic but regular. Abdomen soft, extremities frail, muscle wasting noted. No acute skin rash. Neurologically intact except for significant weakness. No JVD. Oropharynx clear Assessment and Plan (1) Anemia Status: Acute Category: Medical Code(s): D64.9 - Anemia, unspecified (2) Mitral regurgitation Status: Acute Category: Medical Code(s): I34.0 - Nonrheumatic mitral (valve) insufficiency (3) Liver mass Status: Acute Category: Medical Code(s): R16.0 - Hepatomegaly, not elsewhere classified (4) Pleural effusion Status: Acute Category: Medical Code(s): J90 - Pleural effusion, not elsewhere classified (5) Respiratory failure with hypoxia Status: Acute Qualifiers: Chronicity: acute Qualified Code(s): J96.01 - Acute respiratory failure with hypoxia Category: Medical Code(s): J96.91 - Respiratory failure, unspecified with hypoxia (6) History of atrial fibrillation Status: Acute Category: Medical Code(s): Z86.79 - Personal history of other diseases of the circulatory system (7) On amiodarone therapy Status: Acute Category: Medical Code(s): Z79.899 - Other exterminator helper termite (current) drug therapy (8) Non-alcoholic cirrhosis Status: Acute Category: Medical Code(s): K74.60 - Unspecified cirrhosis of liver (9) Coronary artery disease Status: Acute Category: Medical Code(s): I25.10 - Atherosclerotic heart disease of [place] coronary artery without angina pectoris (10) History of coronary artery stent placement Status: Acute Category: Surgical Code(s): Z95.5 - Presence of coronary angioplasty implant and graft (11) CKD (chronic kidney disease) stage 3, GFR 30-59 ml/min Status: Acute Category: Medical Code(s): N18.30 - Chronic kidney disease, stage 3 unspecified - Assessment and plan all Dx Assessment and Plan for all problems:: Significant nonalcoholic cirrhosis with transudate of effusion that has been recurrent and has been drained multiple times. Patient is aware of the nature of her disease and his lack of improvement. I once again brought up returning to the alf on hospi
--- NOTE | 2021-02-04 08:59 | XR_ITS ---
PROCEDURE: XR CHEST PORTABLE CLINICAL HISTORY: HYpoxia COMPARISON: CR XR CHEST PORTABLE from 02/03/[address] CHEST WO CON from 02/03/2021 CR XR CHEST PORTABLE from 02/03/2021 FINDINGS: Loop recorder device is present. No evidence of CHF. Increased consolidation in the right mid lower lung zone as well as right upper lobe with suspected reaccumulation of right pleural effusion. There is a small zone of lucency along the right lateral hemithorax possibly due to skin fold artifact. Cannot exclude the possibility of a small pneumothorax. Follow-up is suggested. There is some shift of the trachea toward the right suggesting right-sided volume loss. No acute bony abnormalities. IMPRESSION: Worsening pulmonary status with increasing consolidation/volume loss of the right lower lobe and right upper lobe with reaccumulation of right pleural effusion and possible small right-sided pneumothorax versus skin fold artifact. ICU was notified of this finding at 10:33 a.m. 02/04/2021 Dictated by: Jourdan Harmon MD 02/04/2021 10:34 Jourdna Harmon MD in [facility] 02/04/2021 10:34
--- NOTE | 2021-02-04 09:43 | PC.NURSE ---
Dr. August @ [facility]. He decreased Vapotherm to 25L/50%. O2 sat 92% on 25L/50%. Pt is disoriented to place, thinks she is at the [facility]. IS given to pt to use. Will encourage use throughout the day.
--- NOTE | 2021-02-04 09:48 | PC.WOUNDNOTE ---
family called and have been updated
[2021-02-04 10:37] LABS: Albumin, Body Fluid 0.6 g/dL (Not Estab.); Glucose, Body Fluid 151 mg/dL (.); LD, Body Fluid 50 IU/L (.); Protein, Body Fluid 1.7 g/dL (.)
--- NOTE | 2021-02-04 10:40 | PC.NURSE ---
received call from Dr. Harmno reporting that pt may have a small right pneumo. Dr. August and Dr. Ricardo updated.
--- NOTE | 2021-02-04 10:58 | CT_ITS ---
PROCEDURE INFORMATION: Exam: CT Chest Without Contrast; Diagnostic Exam date and time: 02/04/2021 10:58 AM Age: 80 years old Clinical indication: Cough and shortness of breath; Patient HX: Pneumonia, effusion pneumothorax; Additional info: Pneumonia/efusion/pneumothorax TECHNIQUE: Imaging protocol: Diagnostic computed tomography of the chest without contrast. Radiation optimization: All CT scans at this facility use at least one of these dose optimization techniques: automated exposure control; mA and/or kV adjustment per patient size (includes targeted exams where dose is matched to clinical indication); or iterative reconstruction. COMPARISON: CT CHEST WO CON 02/03/2021 2:08 AM FINDINGS: Thyroid: Absence of the left thyroid lobe. Inhomogeneous attenuation in the right thyroid lobe. Lungs: Interstitial prominence and chronic granulomatous disease. Asymmetric airspace disease, right greater than left, with interval improvement in right-sided airspace disease and worsening left-sided airspace disease. Bronchial calcification. Pleural spaces: Large residual right pleural effusion . Mild left pleural thickening. Heart: Coronary artery calcification and stent. Aorta: Calcification and ectasia of the thoracic aorta. Lymph nodes: Calcified and noncalcified lymph nodes, the majority of which are subcentimeter in size. Upper abdomen: Poorly defined hypodensity in the incompletely visualized liver. Mild infiltration of mesenteric fat. Enlarged spleen measuring 14.0 cm in length. Bones/joints: Osteopenia and degenerative change. Old rib fracture. Soft tissues: Subcutaneous edema. IMPRESSION: 1. Large residual right pleural effusion . 2. Asymmetric airspace disease, right greater than left, with interval improvement in right-sided airspace disease and worsening left-sided airspace disease. 3. Additional findings as described above.
--- NOTE | 2021-02-04 10:58 | HMH.PULMPN ---
Internal Medicine - PN: Subj *Date: 02/04/21 *Time: 10:58 Interval history: No acute respiratory vents overnight. Patient denies any new complaints. Exam - Constitutional Constitutional:: Present: no acute distress, comfortable - HENMT Exam HENMT: Present: normocephalic, atraumatic - Eye Exam Eyes:: Present: normal appearance both eyes and related structures - Neck Exam Neck:: Present: normal visual inspection - Respiratory Exam Respiratory:: Present: able to speak in complete sentences, respiratory distress, decreased breath sounds, crackles - Cardiovascular Exam Cardiac:: Present: S1, S2 - Skin Exam Skin: Present: warm, no rash - Neurological Exam Neurological: Present: alert, normal cognition - Extremities Exam Extremities: Present: no cyanosis, no clubbing, no edema Assessment and Plan (1) Anemia Status: Acute Category: Medical Code(s): D64.9 - Anemia, unspecified (2) Mitral regurgitation Status: Acute Category: Medical Code(s): I34.0 - Nonrheumatic mitral (valve) insufficiency (3) Liver mass Status: Acute Category: Medical Code(s): R16.0 - Hepatomegaly, not elsewhere classified (4) Pleural effusion Status: Acute Category: Medical Code(s): J90 - Pleural effusion, not elsewhere classified (5) Respiratory failure with hypoxia Status: Acute Qualifiers: Chronicity: acute Qualified Code(s): J96.01 - Acute respiratory failure with hypoxia Category: Medical Code(s): J96.91 - Respiratory failure, unspecified with hypoxia (6) History of atrial fibrillation Status: Acute Category: Medical Code(s): Z86.79 - Personal history of other diseases of the circulatory system (7) On amiodarone therapy Status: Acute Category: Medical Code(s): Z79.899 - Other half-way (current) drug therapy (8) Non-alcoholic cirrhosis Status: Acute Category: Medical Code(s): K74.60 - Unspecified cirrhosis of liver (9) Coronary artery disease Status: Acute Category: Medical Code(s): I25.10 - Atherosclerotic heart disease of [place] coronary artery without angina pectoris (10) History of coronary artery stent placement Status: Acute Category: Surgical Code(s): Z95.5 - Presence of coronary angioplasty implant and graft (11) CKD (chronic kidney disease) stage 3, GFR 30-59 ml/min Status: Acute Category: Medical Code(s): N18.30 - Chronic kidney disease, stage 3 unspecified - Assessment and plan all Dx Assessment and Plan for all problems:: #Acute hypoxic respiratory failure: #Transudative Right-sided pleural effusion: 80-year-old prior smoker less than [id number] smoking history, last smoked in 1982, not on any inhalers at baseline, on chronic oxygen therapy at 2 to 3 L, history of CKD, CAD, atrial fibrillation presented to the hospital with worsening hypoxic respiratory failure along with productive cough pulmonary was called for further management. Patient chest x-ray and CT on admission showed large right-sided effusion with compressive atelectasis. Patient admits worsening respiratory status for the last 2 months. She recently had a thoracentesis performed yesterday with removal of 1650 ml of yellow serous nonbloody fluid. CT scan at [facility] after this thoracentesis still showed significant pleural effusion on the right side it is unclear whether patient reaccumulated the fluid are patient developed hemothorax since her recent thoracentesis. Patient also had a hemorrhoid and admits bleeding her hemoglobin also dropped. Patient denies any personal history of cancer. She had a thyroidectomy 4 years ago that was reported to be benign. Interval update: Patient had a thoracentesis with removal yellow serous 2300 mL yesterday after which she had significant improvement in her symptoms, however her respiratory status continued to decline after brief improvement and repeat x-ray this morning showed worsening effusion with collapse of the lung. T
--- NOTE | 2021-02-04 11:25 | PC.NURSE ---
pt now on 5L NC. O2 sat 91% on 5L NC.
[2021-02-05] VITALS: BP 120/55; PULSE 56; RESP 16; TEMP 37.2; O2SAT 91
--- NOTE | 2021-02-05 03:20 | PC.NURSE ---
Pt. able to state name, , year and place, as well as needs. Diminished lung sounds t/o bilat lobes; increased soa reported with activity. Intermittent nonproductive cough noted. Pt. denies abd tenderness, some distention palpated. No c/o pain, n/v/d, or dizziness.
[2021-02-05 03:25] VITALS: BP 108/44; PULSE 54; RESP 16; TEMP 37.1; O2SAT 93
[2021-02-05 06:46] VITALS: PULSE 53; O2SAT 96
--- NOTE | 2021-02-05 07:32 | [facility].DCSUM ---
General - General Admission date:: 02/03/21 Discharge date: 02/05/21 HPI HPI: 80-year-old white female who is a resident of the [facility], who was seen by pulmonary at the [facility] yesterday because of pleural effusions and apparently had 2 L of fluid drained from her right chest without initial complications. Transferred back to the [facility] without complication but then became very short of air and pale, transferred here to the emergency department. In the emergency department continue to have evidence of a large pleural effusion, but evidence of CHF with vascular congestion, elevated BNP and very anemic with hemoglobin below 8 with symptomatic dyspnea. Admitted to hospital for further evaluation and diagnostic testing. Hospital Course Hospital Course: Ms. Alvarado was admitted for worsening respiratory failure along with productive cough. 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 Has had worsening breathing for the past 2 months. Recent thoracentesis performed day before admission with removal of 1-1/2 L of serous fluid. On admission she was noted to have continued effusion on her right side. Pulmonology was consulted during admission to assist with care. An additional 2.3 L of serous fluid was removed improving her respiratory distress. Goals of care discussion with and patient determined that they would like to [facility] and pursue hospice care for her recurring pleural effusion secondary to her cirrhosis. In the setting of ultrasound showing liver mass/cirrhosis, possible pancreatic mass, recurring rapid accumulation of fluid in her chest, plan for transfer back to her [facility] with hospice consult. Patient medically stable for transfer. Tolerating nasal cannula oxygen without significant distress. We will plan to continue antibiotics on discharge for presumed pneumonia. Examined on day of discharge Objective Vital signs: Temp Pulse Resp BP Pulse Ox 98.7 F 53 L 16 108/44 L 96 02/05/21 03:25 02/05/21 06:46 02/05/21 03:25 02/05/21 03:25 02/05/21 06:46 mild distress, thin - *Routine HEENT Exam Head: Present: normocephalic Eye: Present: EOMI, PERRL ENT: Present: mucous membranes moist - *Routine Neck Exam Present: supple - *Routine Respiratory Exam Present: other Comments: Left lung is clear with good air movement, right lung with diminished air movement given positioning. No appreciable crackles or wheeze - *Routine Cardiovascular Exam Present: RRR - *Routine Abdominal Exam Present: soft, normoactive bowel sounds. Absent: tenderness - *Routine Extremities Exam Absent: cyanosis, clubbing, edema Comments: Sarcopenia, thin extremities - *Routine Skin Exam Present: warm. Absent: rash - *Routine Neurological Exam Present: alert, oriented X3 Global weakness Results Labs on day of discharge: Labs from last 24 hours 02/03/21 13:00 Fluid Glucose 151 Fluid Total Protein 1.7 Fluid Albumin 0.6 Fluid LDH 50 Preliminary micro results at discharge 02/03/21 00:30 Blood Culture - Preliminary Blood NO GROWTH AFTER 48 HOURS 02/03/21 00:30 Blood Culture - Preliminary Blood NO GROWTH AFTER 48 HOURS 02/03/21 13:00 Body Fluid Culture - Preliminary Thoracic Fluid NO GROWTH AFTER 24 HOURS DS: Diagnosis - Discharge Diagnosis (1) Anemia Status: Acute (2) Mitral regurgitation Status: Chronic (3) Liver mass Status: Acute (4) Pleural effusion Status: Acute (5) Respiratory failure with hypoxia Status: Acute (6) History of atrial fibrillation Status: Chronic (7) On amiodarone therapy Status: Chronic (8) Non-alcoholic cirrhosis Status: Chronic (9) Coronary artery disease Status: Chronic (10) History of coronary artery stent placement St
[2021-02-05 08:00] VITALS: BP 114/46; PULSE 54; RESP 20; TEMP 36.6; O2SAT 91
--- NOTE | 2021-02-05 10:13 | HMH.PULMPN ---
Internal Medicine - PN: Subj *Date: 02/05/21 *Time: 10:13 Interval history: No acute respiratory vents overnight. Patient respiratory status continued to improve this morning on 4 L nasal cannula. Exam - Constitutional Constitutional:: Present: no acute distress, comfortable - HENMT Exam HENMT: Present: normocephalic, atraumatic - Eye Exam Eyes:: Present: normal appearance both eyes and related structures - Neck Exam Neck:: Present: normal visual inspection - Respiratory Exam Respiratory:: Present: able to speak in complete sentences, no respiratory distress, decreased breath sounds, crackles. Absent: wheezing - Cardiovascular Exam Cardiac:: Present: S1, S2 - GI Exam GI:: Present: soft. Absent: no tenderness Comments: Right upper quadrant tenderness with mild guarding noted - Skin Exam Skin: Present: warm - Neurological Exam Neurological: Present: alert, awake, normal cognition - Extremities Exam Extremities: Present: no cyanosis, no clubbing, no edema - Psychiatric Exam Psychiatric: Present: normal affect Assessment and Plan (1) Anemia Status: Acute Category: Medical Code(s): D64.9 - Anemia, unspecified (2) Mitral regurgitation Status: Chronic Category: Medical Code(s): I34.0 - Nonrheumatic mitral (valve) insufficiency (3) Liver mass Status: Acute Category: Medical Code(s): R16.0 - Hepatomegaly, not elsewhere classified (4) Pleural effusion Status: Acute Category: Medical Code(s): J90 - Pleural effusion, not elsewhere classified (5) Respiratory failure with hypoxia Status: Acute Qualifiers: Chronicity: acute Qualified Code(s): J96.01 - Acute respiratory failure with hypoxia Category: Medical Code(s): J96.91 - Respiratory failure, unspecified with hypoxia (6) History of atrial fibrillation Status: Chronic Category: Medical Code(s): Z86.79 - Personal history of other diseases of the circulatory system (7) On amiodarone therapy Status: Chronic Category: Medical Code(s): Z79.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 (8) Non-alcoholic cirrhosis Status: Chronic Category: Medical Code(s): K74.60 - Unspecified cirrhosis of liver (9) Coronary artery disease Status: Chronic Category: Medical Code(s): I25.10 - Atherosclerotic heart disease of [place] coronary artery without angina pectoris (10) History of coronary artery stent placement Status: Chronic Category: Surgical Code(s): Z95.5 - Presence of coronary angioplasty implant and graft (11) CKD (chronic kidney disease) stage 3, GFR 30-59 ml/min Status: Chronic Category: Medical Code(s): N18.30 - Chronic kidney disease, stage 3 unspecified - Assessment and plan all Dx Assessment and Plan for all problems:: #Acute hypoxic respiratory failure: #Transudative Right-sided pleural effusion: 80-year-old prior smoker less than [id number] smoking history, last smoked in 1982, not on any inhalers at baseline, on chronic oxygen therapy at 2 to 3 L, history of CKD, CAD, atrial fibrillation presented to the hospital with worsening hypoxic respiratory failure along with productive cough pulmonary was called for further management. Patient chest x-ray and CT on admission showed large right-sided effusion with compressive atelectasis. Patient admits worsening respiratory status for the last 2 months. She recently had a thoracentesis performed yesterday with removal of 1650 ml of yellow serous nonbloody fluid. Patient denies any personal history of cancer. She had a thyroidectomy 4 years ago that was reported to be benign. Thoracentesis performed on admission with removal of 2300 cc. Fluids pleural fluid studies appear to be transudative (Fluid protein 1.7 with LDH at 40). We will follow with cytopathology. CT chest post thoracentesus showed rapid reaccumulation of the fluid with right lower lobe collapse. Patient liver ultrasound is also concerning for liver mass/cirrhosis and poss
== END 2021-02-05 11:15 | DRG 432 ==
LOC: ER 02:11 → ICU 03:36 → 2ND 02-04 13:54
PROVIDERS: Internal Medicine Pulmonary Disease; Admitting Provider Emergency Medicine; Emergency Provider Emergency Medicine; PCP Internal Medicine Adolescent Medicine; Visit Provider Internal Medicine Adolescent Medicine
DX: K74.60 Unspecified cirrhosis of liver (principal); J96.01 Acute respiratory failure with hypoxia; J90 Pleural effusion, not elsewhere classified; I13.0 Hypertensive heart and chronic kidney disease with heart failure and stage 1 through stage 4 chronic kidney disease, or unspecified chronic kidney disease; Z20.822 Contact with and (suspected) exposure to COVID-19; J44.9 Chronic obstructive pulmonary disease, unspecified; I48.91 Unspecified atrial fibrillation; I50.9 Heart failure, unspecified; I25.10 Atherosclerotic heart disease of native coronary artery without angina pectoris; E11.9 Type 2 diabetes mellitus without complications; E78.5 Hyperlipidemia, unspecified; E03.9 Hypothyroidism, unspecified; Z87.891 Personal history of nicotine dependence; R16.0 Hepatomegaly, not elsewhere classified; D64.9 Anemia, unspecified; Z95.5 Presence of coronary angioplasty implant and graft; N18.30 Chronic kidney disease, stage 3 unspecified; E11.22 Type 2 diabetes mellitus with diabetic chronic kidney disease; I08.1 Rheumatic disorders of both mitral and tricuspid valves; Z51.5 Encounter for palliative care
CPT/HCPCS: 32554; 32555; 36415; 71045; 71250; 76705; 80048; 80053; 82042; 82140; 82803; 82945; 83605; 83615; 83880; 84145; 84155; 84443; 84484; 85014; 85018; 85025; 86850; 87040; 87070; 87077; 87186; 87205; 88112; 88305; 89051; 93005; 93306; 94640; 94760; 94761; 96365; 99283; J1956; P9016; U0003

== ENCOUNTER 2021-03-21 13:16 | Emergency (ER) | payer OTHER, MEDICARE, SELFPAY ==
[2021-03-21 13:16] VITALS: BP 135/89; PULSE 51; RESP 16; TEMP 36.6; O2SAT 96; BMI 24.7
--- NOTE | 2021-03-21 13:28 | CT_ITS ---
PROCEDURE INFORMATION: Exam: CT Head Without Contrast Exam date and time: 03/21/2021 1:28 PM Age: 81 years old Clinical indication: Injury or trauma; Fall; Blunt trauma (contusions or hematomas) TECHNIQUE: Imaging protocol: Computed tomography of the head without contrast. 3D rendering (Not supervised by radiologist): MIP and/or 3D reconstructed images were created by the technologist. Radiation optimization: All CT scans at this facility use at least one of these dose optimization techniques: automated exposure control; mA and/or kV adjustment per patient size (includes targeted exams where dose is matched to clinical indication); or iterative reconstruction. COMPARISON: No relevant prior studies available. FINDINGS: Brain: Normal. No hemorrhage. Unremarkable white matter. No mass effect. Cerebral ventricles: No ventriculomegaly. Paranasal sinuses: Visualized sinuses are unremarkable. No fluid levels. Mastoid air cells: Visualized mastoid air cells are well aerated. Bones/joints: Benign hyperostosis frontalis is present. Soft tissues: Extensive soft tissue swelling is seen over the right forehead and orbital rim. IMPRESSION: 1. Extensive soft tissue swelling is seen over the right forehead and orbital rim. 2. No acute intracranial process is identified.
--- NOTE | 2021-03-21 13:29 | CT_ITS ---
PROCEDURE INFORMATION: Exam: CT Cervical Spine Without Contrast Exam date and time: 03/21/2021 1:29 PM Age: 81 years old Clinical indication: Injury or trauma; Fall; Blunt trauma TECHNIQUE: Imaging protocol: Computed tomography images of the cervical spine without contrast. Radiation optimization: All CT scans at this facility use at least one of these dose optimization techniques: automated exposure control; mA and/or kV adjustment per patient size (includes targeted exams where dose is matched to clinical indication); or iterative reconstruction. COMPARISON: CT FACIAL BONES WO CON 03/21/2021 2:11 PM FINDINGS: Bones/joints: A right convex spinal curve is observed. There is a flattening of the normal lordosis, related to positioning or spasm. The spine demonstrates moderate degenerative changes at multiple levels.There is no evidence of fracture. Discs/Spinal canal/Neural foramina: No significant disc protrusion. No severe spinal canal stenosis. No significant neural foraminal narrowing. 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 This appears to lie within a larger nodule measuring about 19 mm. Ultrasound follow-up may be appropriate. Lungs: See Thyroid finding. Pleural spaces: There is a large right pleural fluid collection present. Vasculature: The vasculature demonstrates diffuse moderate atherosclerotic calcification. Soft tissues: There is opacification of the right inferior mastoid air cells which is a nonspecific finding without evidence of destructive change or soft tissue swelling. IMPRESSION: 1. A right convex spinal curve is observed. There is a flattening of the normal lordosis, related to positioning or spasm. 2. The spine demonstrates moderate degenerative changes at multiple levels.There is no evidence of fracture. 3. 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 This appears to lie within a larger nodule measuring about 19 mm. Ultrasound follow-up may be appropriate. 4. There is a large right pleural fluid collection present. 5. There is opacification of the right inferior mastoid air cells which is a nonspecific finding without evidence of destructive change or soft tissue swelling.
--- NOTE | 2021-03-21 13:30 | CT_ITS ---
PROCEDURE INFORMATION: Exam: CT Maxillofacial Without Contrast Exam date and time: 03/21/2021 1:30 PM Age: 81 years old Clinical indication: Injury or trauma; Fall; Blunt trauma (contusions or hematomas); Forehead TECHNIQUE: Imaging protocol: Computed tomography images of the face without contrast. Radiation optimization: All CT scans at this facility use at least one of these dose optimization techniques: automated exposure control; mA and/or kV adjustment per patient size (includes targeted exams where dose is matched to clinical indication); or iterative reconstruction. COMPARISON: CT HEAD/BRAIN WO CON 03/21/2021 2:04 PM FINDINGS: Orbital cavity: Orbits are normal. Globes are unremarkable. Bones/joints: Benign hyperostosis frontalis is present. There is no evidence of fracture. There is moderate degenerative disease of the temporomandibular joints bilaterally. Paranasal sinuses: Normal. No air-fluid levels. Soft tissues: Soft tissue swelling is seen over the right frontal bone extending inferiorly to the lateral orbital margin. There is extensive calcification of the external carotid branches through this region, there is probably no foreign body present. Dental: The patient is edentulous. IMPRESSION: 1. There is no evidence of fracture. 2. There is moderate degenerative disease of the temporomandibular joints bilaterally.
--- NOTE | 2021-03-21 13:31 | CT_ITS ---
PROCEDURE INFORMATION: Exam: CT Thoracic Spine Without Contrast Exam date and time: 03/21/2021 1:31 PM Age: 81 years old Clinical indication: Injury or trauma; Fall; Blunt trauma (contusions or hematomas) TECHNIQUE: Imaging protocol: Computed tomography images of the thoracic spine without contrast. Radiation optimization: All CT scans at this facility use at least one of these dose optimization techniques: automated exposure control; mA and/or kV adjustment per patient size (includes targeted exams where dose is matched to clinical indication); or iterative reconstruction. COMPARISON: CT CERVICAL SPINE WO CON 03/21/2021 2:14 PM FINDINGS: Vertebrae: There is no evidence of acute fracture. Discs/Spinal canal/Neural foramina: The thoracic spine demonstrates moderate degenerative changes at multiple levels. The facet joints demonstrate moderate degenerative narrowing and sclerosis. Other bones/joints: Bones are osteopenic. Soft tissues: Unremarkable. Vasculature: The vasculature demonstrates diffuse mild atherosclerotic calcification. Pleural spaces: Near complete opacification of the right hemithorax is present with a large pleural effusion noted. IMPRESSION: 1. The thoracic spine demonstrates moderate degenerative changes at multiple levels. 2. No evidence of acute fracture. 3. Bones are osteopenic. 4. Near complete opacification of the right hemithorax is present with a large pleural effusion noted.
--- NOTE | 2021-03-21 13:31 | CT_ITS ---
PROCEDURE INFORMATION: Exam: CT Lumbar Spine Without Contrast Exam date and time: 03/21/2021 1:31 PM Age: 81 years old Clinical indication: Injury or trauma; Fall; Blunt trauma (contusions or hematomas) TECHNIQUE: Imaging protocol: Computed tomography images of the lumbar spine without contrast. Radiation optimization: All CT scans at this facility use at least one of these dose optimization techniques: automated exposure control; mA and/or kV adjustment per patient size (includes targeted exams where dose is matched to clinical indication); or iterative reconstruction. COMPARISON: CT THORACIC SPINE WO CON 03/21/2021 2:18 PM FINDINGS: Vertebrae: There is no evidence of acute fracture. Hemangioma is present within the body of L3. Discs/Spinal canal/Neural foramina: The lumbar spine demonstrates moderate degenerative changes at multiple levels. The facet joints demonstrate moderate degenerative narrowing and sclerosis. Other bones/joints: Bones are osteopenic. Intraperitoneal space: Fluid is noted within the pelvis. Vasculature: The vasculature demonstrates diffuse mild atherosclerotic calcification. Soft tissues: Unremarkable. IMPRESSION: 1. The lumbar spine demonstrates moderate degenerative changes at multiple levels. 2. No evidence of acute fracture. 3. Bones are osteopenic. 4. Hemangioma is present within the body of L3. 5. Fluid is noted within the pelvis.
--- NOTE | 2021-03-21 13:32 | XR_ITS ---
PROCEDURE INFORMATION: Exam: XR Chest Exam date and time: 03/21/2021 1:32 PM Age: 81 years old Clinical indication: Injury or trauma; Fall; Blunt trauma (contusions or hematomas) TECHNIQUE: Imaging protocol: XR of the chest. Views: 1 view. COMPARISON: CT CHEST WO CON 03/21/2021 2:26 PM FINDINGS: Tubes, catheters and devices: Loop recorder is noted. Lungs: Complete opacification of the right hemithorax is present. Pleural spaces: No evidence of pneumothorax on the left. Heart/Mediastinum: Cardiac margins are obscured. Bones/joints: The thoracic spine demonstrates moderate degenerative changes at multiple levels. IMPRESSION: 1. Complete opacification of the right hemithorax is present. 2. No evidence of pneumothorax on the left.
--- NOTE | 2021-03-21 13:44 | XR_ITS ---
PROCEDURE INFORMATION: Exam: XR Pelvis Exam date and time: 03/21/2021 1:44 PM Age: 81 years old Clinical indication: Injury or trauma; Fall; Blunt trauma (contusions or hematomas); Does not apply; Pelvic region TECHNIQUE: Imaging protocol: XR pelvis. Views: 1 or 2 view. COMPARISON: CT ABDOMEN PELVIS WO CON 03/21/2021 2:26 PM FINDINGS: Bones/joints: Degenerative changes of both hips. There is no evidence of acute fracture. There is no evidence of joint malalignment or dislocation. Soft tissues: There are no soft tissue masses or fluid collections. Vasculature: There are numerous benign phleboliths in the pelvis. IMPRESSION: 1. Degenerative changes of both hips. 2. No evidence of acute fracture. 3. No evidence of acute dislocation.
--- NOTE | 2021-03-21 13:44 | CT_ITS ---
PROCEDURE INFORMATION: Exam: CT Abdomen And Pelvis Without Contrast Exam date and time: 03/21/2021 1:44 PM Age: 81 years old Clinical indication: Injury or trauma; Fall; Blunt; Generalized; Additional info: Fall; AMS; Cirrhosis TECHNIQUE: Imaging protocol: Computed tomography of the abdomen and pelvis without contrast. Radiation optimization: All CT scans at this facility use at least one of these dose optimization techniques: automated exposure control; mA and/or kV adjustment per patient size (includes targeted exams where dose is matched to clinical indication); or iterative reconstruction. COMPARISON: US LIVER 02/03/2021 12:24 PM FINDINGS: Lungs: Lung findings discussed separately. Liver: Nodularity of the margin of the liver consistent with the patient's history of cirrhosis. Gallbladder and bile ducts: There has been a cholecystectomy. Pancreas: Normal. No ductal dilation. Spleen: Linear hypodense area present within the inferolateral aspect of the spleen. This measures up to 1.4 cm. Adrenal glands: Normal. No mass. Kidneys and ureters: 1.1 cm left renal cyst. Stomach and bowel: A large amount of stool is noted throughout the colon. Appendix: Appendix is not well seen. Intraperitoneal space: There is a moderate amount of free intraperitoneal fluid present. Vasculature: The vasculature demonstrates diffuse moderate atherosclerotic calcification. Lymph nodes: Prominent mesenteric and retroperitoneal lymph nodes present. Urinary bladder: Unremarkable as visualized. Reproductive: Calcifications present within the uterus. Bones/joints: The lumbar spine demonstrates moderate degenerative changes at multiple levels. Hemangioma present within the body of L3. Soft tissues: Diffuse soft tissue edematous changes are present. Fluid noted within the right inguinal canal. Other findings: Lack of IV contrast limits the study as well as decreases sensitivity and specificity. IMPRESSION: 1. Linear hypodense area present within the inferolateral aspect of the spleen. This measures up to 1.4 cm. Differential considerations would include an area of old infarction, however other etiologies such as small laceration cannot be excluded given patient's history of recent trauma. 2. Diffuse soft tissue edematous changes are present. 3. There is a moderate amount of free intraperitoneal fluid present. 4. Nodularity of the margin of the liver consistent with the patient's history of cirrhosis. 5. 1.1 cm left renal cyst. 6. Prominent mesenteric and retroperitoneal lymph nodes present. 7. A large amount of stool is noted throughout the colon. COMMENTS: Consistent with the [employer] [place] [employer]'s Incidental Findings Committee white paper (J Am Carmella Radiol 2018): Any incidental renal lesion less than 1 cm or classified as too small to characterize, or any incidental cystic renal lesion characterized as simple-appearing, is likely benign. No follow-up imaging is recommended for these lesions per consensus recommendations based on imaging criteria.
--- NOTE | 2021-03-21 13:44 | CT_ITS ---
PROCEDURE INFORMATION: Exam: CT Chest Without Contrast; Diagnostic Exam date and time: 03/21/2021 1:44 PM Age: 81 years old Clinical indication: Injury or trauma; Fall; Blunt trauma (contusions or hematomas); Additional info: Fall; AMS; Cirrhosis TECHNIQUE: Imaging protocol: Diagnostic computed tomography of the chest without contrast. Radiation optimization: All CT scans at this facility use at least one of these dose optimization techniques: automated exposure control; mA and/or kV adjustment per patient size (includes targeted exams where dose is matched to clinical indication); or iterative reconstruction. COMPARISON: CT CHEST WO CON 02/04/2021 11:11 AM FINDINGS: Tubes, catheters and devices: Loop recorder is noted. Lungs: Compressive atelectasis of the right lung is present. Atelectatic changes noted within the left lung base. Pleural spaces: Near complete opacification of the right hemithorax is present with a large pleural fluid collection. Trace left pleural effusion. No evidence of pneumothorax on the left. Heart: The heart demonstrates mild diffuse enlargement. Aorta: Unremarkable. No aortic aneurysm. Lymph nodes: Unremarkable. No enlarged lymph nodes. Bones/joints: There is no evidence of acute fracture. The thoracic spine demonstrates moderate degenerative changes at multiple levels. Soft tissues: There are no soft tissue masses or fluid collections. IMPRESSION: 1. Near complete opacification of the right hemithorax is present with a large pleural fluid collection. 2. Compressive atelectasis of the right lung is present. 3. The heart demonstrates mild diffuse enlargement. 4. Atelectatic changes noted within the left lung base. 5. Trace left pleural effusion. 6. No evidence of pneumothorax on the left. 7. No evidence of acute fracture.
[2021-03-21 13:45] VITALS: BP 133/48; PULSE 52; RESP 20; O2SAT 96
--- NOTE | 2021-03-21 14:43 | [facility].EDGENADL ---
ED Disposition Clinical Impression: Hydrothorax, Splenic infarct Facial hematoma Qualifiers: Encounter type: initial encounter Qualified Code(s): S00.83XA - Contusion of other part of head, initial encounter Fall Qualifiers: Encounter type: initial encounter Qualified Code(s): W19.XXXA - Unspecified fall, initial encounter Cirrhosis Qualifiers: Hepatic cirrhosis type: alcoholic cirrhosis Ascites presence: with ascites Qualified Code(s): K70.31 - Alcoholic cirrhosis of liver with ascites Disposition: Hospice - Medical Facility Condition on Discharge: Fair Additional Instructions: Use cold compresses as tolerated for facial swelling, can give Tylenol and ibuprofen for pain control. Referrals: Provider,Referral, [Primary Care Provider] - - Critical Care Critical Care Time: No Attestation: On 03/21/21, the high probability of a clinically significant, sudden or life threatening deterioration of the following system(s) required my full and direct attention, intervention and personal management. The time I documented below is in addition to time spent performing reported procedures but includes the following listed in this critical care notation. Medical Decision Making - Medical Records Medical records reviewed: Yes: I reviewed the patient's medical records. - [place] Inquiry Pt receiving controlled substance: No - Lab Data Lab Results 03/21/21 15:00: WBC 5.1, RBC 3.19 L, Hgb 7.9 L, Hct 28.5 L, MCV 89.3, MCH 24.7 L, MCHC 27.6 L, RDW 14.6, Plt Count 273, MPV 7.4, Neut % (Auto) 73.3, Lymph % (Auto) 17.4, [place] % (Auto) 8.0, Eos % (Auto) 0.8, Baso % (Auto) 0.5, Neut # (Auto) 3.7, Lymph # (Auto) 0.9, [place] # (Auto) 0.4, Eos # (Auto) 0.0, Baso # (Auto) 0.0 03/21/21 15:00: PT 12.0, INR 1.02 03/21/21 15:00: Sodium 138, Potassium 5.6 H, Chloride 100, Carbon Dioxide 33 H, Anion Gap 10.6, BUN 32 H, Creatinine 1.00, Estimated Creat Clear 45, Estimated GFR 53 L, Est GFR ( Amer) 65, Glucose 211 H, Calcium 8.4, Total Bilirubin 0.2, AST 38 H, ALT 13, Alkaline Phosphatase 101, Total Protein 6.9, Albumin 3.2 L, Globulin 3.7 H, Albumin/Globulin Ratio 0.9 L 03/21/21 15:00: Ammonia < 9 L Result diagrams: 03/21/21 15:00 03/21/21 15:00 Orders (Tests/Meds): ED MEDICATIONS Discontinued Medications Generic Name Dose Route Start Last Admin Trade Name Eva PRN Reason Stop Dose Admin Oxycodone HCl 5 mg 03/21/21 13:40 Oxycodone 5mg Immediate Release Tablet PO 03/21/21 13:41 ONCE ONE Medical Decision Narrative: 81-year-old female with past medical history of multiple comorbidities including 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 She had a witnessed fall today where she struck her face but did not lose consciousness. On arrival, patient is confused which appears to be her baseline. She has a large amount of periorbital swelling and ecchymosis and similar overlying her right forehead. Her exam appears to be intact aside from some conjunctival edema. Given patient's age, mechanism, and underlying comorbidities will obtain CT of the head, face, C, T, and L spines as well as chest and abdomen pelvis given her intermittent complaints of diffuse pain. Patient is hemodynamically stable on arrival, and labs including CBC, CMP, and coags will be obtained. On reevaluation, patient has evidence of complete opacification of the right lung on chest x-ray as well as complete opacification of the right hemithorax with fluid on CT of the chest. 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 Given patient's lack of any other injuries aside from her facial swelling, and fall onto right side rather than left, this is felt to be less likely. Patient has multiple degenerative changes of all levels of the spine, but no acute fractures. As patient is currently a hospice patient and was being seen only for thi
[2021-03-21 15:15] VITALS: BP 126/74; PULSE 50; RESP 16; O2SAT 96
[2021-03-21 15:43] LABS: Basophils % 0.5 % (0.1-2.0); Eosinophils % 0.8 % (0.1-12.0); Hematocrit 28.5 % (37.0-47.0); Hemoglobin 7.9 g/dL (12.2-16.2); Lymphocytes # 0.9 K/mm3 (0.7-4.5); Lymphocytes % 17.4 % (10-50); Mean Corpuscular HGB Conc 27.6 g/dL (31.8-35.4); Mean Corpuscular Hemoglobin 24.7 pg (27.0-31.2); Mean Corpuscular Volume 89.3 fl (81-99); Mean Platelet Volume 7.4 fl (7.4-10.4); Monocytes # 0.4 K/mm3 (0.1-1.0); Neutrophils # 3.7 K/mm3 (1.8-7.8); Neutrophils % 73.3 % (37.0-80.0); Platelet Count 273 K/mm3 (142-424); Red Blood Count 3.19 M/mm3 (4.20-5.40); Red Cell Distribution Width 14.6 % (11.5-17.5); White Blood Count 5.1 K/mm3 (4.8-10.8)
[2021-03-21 15:44] LABS: Chloride 100 mmol/L (98-107); Potassium 5.6 mmoL/L (3.5-5.1); Sodium 138 mmol/L (136-145)
[2021-03-21 15:46] LABS: Blood Urea Nitrogen 32 mg/dl (7-17); Creatinine Clearance Estimated 45 mL/min (50-200); Estimated Glomerular Filt Rate 53 ml/min (>60); GFR (African American) 65 ML/MIN (>60)
[2021-03-21 15:47] LABS: Alanine Aminotransferase 13 U/L (12-78); Albumin Level 3.2 g/dl (3.5-5.0); Albumin/Globulin Ratio 0.9 (1.1-1.8); Alkaline Phosphatase 101 U/L (38-126); Ammonia < 9 umol/L (9-30); Anion Gap 10.6 mEq/L (5-15); Aspartate Amino Transferase 38 U/L (14-36); Bilirubin,Total 0.2 mg/dl (0.2-1.3); Calcium 8.4 mg/dl (8.4-10.2); Carbon Dioxide 33 mmol/L (22.0-30.0); Globulin 3.7 g/dL (1.3-3.2); Glucose 211 mg/dl (74-100); Total Protein,Serum 6.9 g/dl (6.3-8.2)
[2021-03-21 15:49] LABS: INR 1.02 (0.9-1.1)
[2021-03-21 16:45] VITALS: BP 130/74; PULSE 52; RESP 16; TEMP 36.6; O2SAT 98
--- NOTE | 2021-03-21 17:47 | PC.NURSE ---
REPORT CALLED TO [facility]
[2021-03-21 19:00] VITALS: BP 132/74; PULSE 52; RESP 16; TEMP 36.6; O2SAT 98
== END 2021-03-21 19:01 | disposition hospice, inpatient (51) ==
PROVIDERS: Emergency Provider Emergency Medicine
DX: S00.83XA Contusion of other part of head, initial encounter (principal); W01.0XXA Fall on same level from slipping, tripping and stumbling without subsequent striking against object, initial encounter; Y92.129 Unspecified place in nursing home as the place of occurrence of the external cause; J94.8 Other specified pleural conditions; D73.5 Infarction of spleen; I25.10 Atherosclerotic heart disease of native coronary artery without angina pectoris; I48.0 Paroxysmal atrial fibrillation; K70.31 Alcoholic cirrhosis of liver with ascites; E78.5 Hyperlipidemia, unspecified; E11.9 Type 2 diabetes mellitus without complications; I10 Essential (primary) hypertension
CPT/HCPCS: 70450; 70486; 71045; 71250; 72125; 72128; 72131; 72170; 74176; 80053; 82140; 85025; 85610; 99283